=== PATIENT | male | born 1985 | race Caucasian/White ===

== ENCOUNTER 2017-11-30 20:35 | Emergency (ER) | payer MEDICAID ==
[~2017-11-30] VITALS: Ht 165.1 cm; Wt 83.5 kg
[2017-11-30 23:24] VITALS: BP 142/91
== END 2017-11-30 23:37 | disposition home or self-care (01) ==
LOC: ED 23:15
DX: L04.9 Acute lymphadenitis, unspecified (principal); J02.8 Acute pharyngitis due to other specified organisms; F90.9 Attention-deficit hyperactivity disorder, unspecified type; F41.9 Anxiety disorder, unspecified
CPT/HCPCS: 87081; 87880; 99284

== ENCOUNTER 2018-12-10 23:29 | Emergency (ER) | payer MEDICAID ==
[~2018-12-10] VITALS: Ht 167.6 cm; Wt 82.8 kg
[2018-12-11] MEDS ORDERED: DEXT10CA4 PO (00:40)
[2018-12-11] MEDS ORDERED: DEXT15CA PO (00:40)
[2018-12-11] MEDS ORDERED: NICO-486 TD (00:40)
[2018-12-11] MEDS ORDERED: HYDR50TA13 PO (00:40)
[2018-12-11] MEDS ORDERED: METHOCARBAMOL 750 MG TABLET PO ONE (01:00)
[2018-12-11] MEDS ORDERED: KETOROLAC 30 MG/1 ML IM ONE (01:00)
[2018-12-11] MEDS ORDERED: METHOCARBAMOL 750 MG TABLET ONE (01:27)
[2018-12-11] MEDS ORDERED: KETOROLAC 30 MG/1 ML ONE (01:27)
--- NOTE | 2018-12-11 01:30 | NUR ---
PT MEDICATED FOR PAIN. UNABLE TO PROVIDE URINE SAMPLE AT THIS TIME. MULTIPLE CUPS OF WATER GIVEN.
--- NOTE | 2018-12-11 02:26 | NUR ---
PT STATES PAIN GONE POST MEDS. PT UP TO RESTROOM AND URINE SAMPLE PROVIDED. PT DENIES NEEDS AT THIS TIME.
[2018-12-11 02:38] LABS: MICROSCOPIC NOT IND
[2018-12-11 02:43] LABS: CULTURE INDICATED? NO
[2018-12-11 03:02] VITALS: BP 127/59
== END 2018-12-11 03:04 | disposition home or self-care (01) ==
LOC: ED 12-11 00:42
DX: M54.5 Low back pain (principal); D17.0 Benign lipomatous neoplasm of skin and subcutaneous tissue of head, face and neck; F41.1 Generalized anxiety disorder
CPT/HCPCS: 72110; 81003; 96372; 99284; J1885

== ENCOUNTER 2019-06-06 15:37 | Emergency (ER) | payer MEDICAID ==
[~2019-06-06] VITALS: Ht 167.6 cm; Wt 83.6 kg
[~2019-06-06 15:37] MED LIST: DEXT10CA4 PO; DEXT15CA PO; HYDR50TA13 PO; NICO-486 TD
--- NOTE | 2019-06-06 18:01 | NUR ---
REGULATORY AFFAIRS MANAGER: Patient to room from lobby at this time.
[2019-06-06] MEDS ORDERED: DEXT15CA4 PO (18:06)
--- NOTE | 2019-06-06 18:09 | NUR ---
pt to ed for right sided, dull cp since last night, worse with movement of right arm. pt states was unable to sleep due to pain. pt states 8/10 at onset, not 5/10. pt connected to monitors. vss. Dr. Germain to bs for assessment. awaiting orders.
[2019-06-06 18:12] VITALS: BP 134/94
[2019-06-06] MEDS ORDERED: ASPIRIN 81 MG TABLET CHEW ONE (18:14)
[2019-06-06 18:30] LABS: BASOPHILS # (AUTO) 0.08 x10^3/uL (0-0.1); BASOPHILS % (AUTO) 1 % (0-1); EOSINOPHILS # (AUTO) 0.13 x10^3/uL (0-0.4); EOSINOPHILS % (AUTO) 2 % (1-7); LYMPHOCYTES # (AUTO) 2.25 x10^3/uL (1-3.4); LYMPHOCYTES % (AUTO) 30 % (22-44); MD NO; MEAN CORPUSCULAR HEMOGLOBIN 31.8 pg (27.5-34.5); MEAN CORPUSCULAR HGB CONC 33.7 g/dL (33.2-36.2); MEAN CORPUSCULAR VOLUME 94.3 fL (81-97); MEAN PLATELET VOLUME 7.8 fL (7.4-10.4); MONOCYTES # (AUTO) 0.47 x10^3/uL (0.2-0.8); MONOCYTES % (AUTO) 6 % (2-9); NEUTROPHILS # (AUTO) 4.59 x10^3/uL (1.8-6.8); NEUTROPHILS % (AUTO) 61 % (42-75); PLATELET COUNT 354 x10^3/uL (130-400); RED BLOOD COUNT 5.07 x10^6/uL (4.38-5.82); RED CELL DISTRIBUTION WIDTH 13.3 % (9.4-14.8)
[2019-06-06] MEDS ORDERED: ASPIRIN 81 MG TABLET CHEW PO ONE (18:30)
--- NOTE | 2019-06-06 18:38 | NUR ---
pt to imaging.
[2019-06-06 18:41] LABS: ALANINE AMINOTRANSFERASE 29 U/L (12-78); ANION GAP 8 mmol/L (5-15); CHLORIDE 107 mmol/L (98-107)
[2019-06-06 18:46] LABS: ALKALINE PHOSPHATASE 77 U/L (45-117); BILIRUBIN,TOTAL 0.6 mg/dL (0.2-1.0); CREATININE 1.02 mg/dL (0.7-1.3); TOTAL PROTEIN 7.7 g/dL (6.4-8.2); TROPONIN I < 0.015 ng/mL (0.000-0.045)
--- NOTE | 2019-06-06 18:55 | NUR ---
Dr. Germain to bs to update on poc. awaiting dispo.
--- NOTE | 2019-06-06 19:20 | NUR ---
GORAN RN: Patient/Caregiver given discharge instructions and they have confirmed that they understand the instructions. Patient ambulatory with steady gait.
== END 2019-06-06 19:22 | disposition home or self-care (01) ==
LOC: ED 18:30
DX: R07.89 Other chest pain (principal); R06.02 Shortness of breath; Z87.891 Personal history of nicotine dependence
CPT/HCPCS: 36415; 71046; 80053; 84484; 85025; 85379; 93005; 99284

== ENCOUNTER 2019-06-21 18:00 | Emergency (ER) | payer MEDICAID ==
[~2019-06-21] VITALS: Ht 167.6 cm; Wt 190.0 kg
[2019-06-21 18:02] VITALS: BP 141/89
== END 2019-06-21 19:13 | disposition home or self-care (01) ==
LOC: ED 18:30
DX: L72.3 Sebaceous cyst (principal); Z87.891 Personal history of nicotine dependence; F41.1 Generalized anxiety disorder; F90.9 Attention-deficit hyperactivity disorder, unspecified type
CPT/HCPCS: 10060; 99283